=== PATIENT | male | born 1975 | race Two or more races ===

== ENCOUNTER → 2017-07-09 | Outpatient (REF) | payer OTHER ==
[2017-07-09 13:48] LABS: RBC, URINE NONE SEEN /hpf (0-3); SQUAMOUS EPITHELIAL CELL URINE SMALL AMOUNT /hpf (SMALL AMT); WBC, URINE 0-1 /hpf (0-3)
[2017-07-09 13:49] LABS: BACTERIA, URINE NONE SEEN; HYALINE CAST, URINE NONE SEEN /lpf (0-1); MICROSCOPIC EXAM PERFORMED
[2017-07-11 00:06] LABS: Candida species Negative (Negative); Gardnerella vaginalis Positive (Negative); Trichamonas vaginalis Negative (Negative)
== END ==
LOC: M SMT 13:02
PROVIDERS: ATTEND Specialist
DX: R35.0 Frequency of micturition (principal)